=== PATIENT | female | born 1945 | race Caucasian/White ===

== ENCOUNTER 2023-07-22 10:44 | Outpatient (AMB) | payer MEDICARE, OTHER, SELFPAY ==
--- NOTE | 2023-07-22 10:47 | MHC.OFFVIS ---
Intake Vital Signs 07/22/23 10:58 Height 4 ft 11 in Weight 286 lb 9.615 oz BMI 57.9 BP 118/72 Blood Pressure Location Rt brachial Position Sitting Pulse 71 Pulse Source Pulse Oximeter Pulse Oximetry (%) 97 Intake Visit Reasons: Osteoarthritis of knee Intake Note: New pt presents today for OA consult. Pain in bl knees, left knee cortisone injection appr 3 months ago helped. 2 weeks ago right knee pain has progressed. Nurse Educator Required: No Accompanied by: Friend Allergies amoxicillin [From Augmentin] Adverse Reaction (Unknown, Verified 07/22/23 11:07) Nausea atenolol Adverse Reaction (Unknown, Verified 07/22/23 11:07) Nausea clavulanic acid [From Augmentin] Adverse Reaction (Unknown, Verified 07/22/23 11:07) Nausea codeine Adverse Reaction (Unknown, Verified 07/22/23 11:07) Nausea hydrocodone [From Hycomine (hydrocodone-PPA)] Adverse Reaction (Unknown, Verified 07/22/23 11:07) Nausea phenylpropanolamine [From Hycomine (hydrocodone-PPA)] Adverse Reaction (Unknown, Verified 07/22/23 11:07) Nausea Medication List - Last Reconciled 07/22/23 by Prema Oliver MD albuterol sulfate 2.5 mg inhalation Q4-6H PRN albuterol sulfate 90 mcg/actuation 2 puffs inhalation Q4-6H PRN blood-glucose meter (FreeStyle Lite Meter kit) As directed escitalopram oxalate 5 mg PO DAILY furosemide 20 mg PO DAILY hydrochlorothiazide 12.5 mg PO DAILY hydroxychloroquine 200 mg PO BID lisinopril 40 mg PO DAILY metformin ER 1,000 mg PO BID pravastatin 10 mg PO BEDTIME HPI HPI Comments History of Present Illness Details This is a 78-year-old female who presents for evaluation of multiple joint pain and stiffness.. Patient was seen once by Dr. Cortez 06/2022 Starting February of 2022. Patient started having left knee pain, stiffness and swelling. She had left knee arthrocentesis which showed inflammatory fluid. 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 She was evaluated by Dr. Cortez 06/2022 and started on hydroxychloroquine. Hydroxychloroquine was then discontinued. Unclear reasons. Patient states that she received left knee steroid injection 3-4 months ago which helped for about 3-4 months. Now the pain is coming back. She is also starting to have right stiffness, reduced range of motion. Over the last month. Over the last 3 months she has been noticing swelling of both her wrists and fingers. They do not hurt. She has been using a cane since last year. Her maternal grandmother and maternal uncle had rheumatoid arthritis. There is no other known family history of an autoimmune rheumatic disease [facility] Medical History (Updated 07/22/23 @ 11:35 by Prema Oliver MD) Diabetes mellitus Endometrial cancer GERD (gastroesophageal reflux disease) Asthma Obstructive sleep apnea syndrome Non-toxic multinodular goiter Peripheral autonomic neuropathy due to diabetes mellitus Paroxysmal atrial fibrillation Hypertension Osteoarthritis of knee Seropositive rheumatoid arthritis Surgical History Hx of cholecystectomy History of total hysterectomy with bilateral salpingo-oophorectomy (BSO) Hx of colonoscopy Family History Mother Myocardial infarction Father Hypertension Social History Household Members: Spouse Alcohol intake: current Alcohol intake frequency: holidays/special occasions only Patient Tobacco Use Status: Never used Tobacco Current occupational status: retired Review of Systems [facility] [place] Reports joint swelling, Reports limited range of motion and Reports stiffness Physical Exam Vital Signs: Last Vital Signs Pulse 71 07/22/23 10:58 BP 118/72 07/22/23 10:58 Pulse Ox 97 07/22/23 10:58 BMI result Body Mass Index 57.9 Const General: cooperative, healthy appearing and comfortable Nutritional Appearance: obese morbidly obese Orientation/consciousness: patient oriented x3 Limitations: no limitations HEENT Mouth: moist mucous membranes Resp Effort & Inspection: normal respiratory effort and able to speak in complete sentences Auscultation: clear to auscultation bilaterally Cardio Rate: regular rate Rhythm: regular rhythm Heart sounds: S1 normal heart sound present Skin General skin exam: dry skin Neuro General: patient oriented x3 Extrem Other: Right wrist swelling and a large ganglion cyst on the volar aspect of the right wrist. No tender joints, negative MCP squeeze test., reduced right hand ammonia worker strength Left wrist swelling and ganglion cyst on the volar aspect of the left wrist without tenderness Limited left wrist extension Swelling of 2nd and 3rd digits Significantly reduced ammonia worker strength Negative MCP squeeze test Bilateral knee swelling, warmth and reduced range of motion Normal pain-free range of motion of both elbows and shoulders Results Reviewed Results Reviewed: Labs? 03/2022 CCP >250 DANIKA 1-160 homogeneous and 1-40 nucleolar CRP normal? ESR 19? Left knee arthrocentesis? WBC: 65520 PMN 60% Left knee x-rays 02/2022 Severe multi compartment degenerative changes.? Infusion Labs 06/2022? HbA1c 6.8% Assessment & Plan Assessment & Plan (1) Seropositive rheumatoid arthritis: Code(s): M05.9 - Rheumatoid arthritis with rheumatoid factor, unspecified Plan: This is a 78-year-old female who presents for evaluation of multiple stiff and swollen joints. Started with left knee swelling and stiffness 02/2022 arthrocentesis showed inflammatory fluid, over the last 3 months she has been having right knee stiffness as well as swelling and stiffness of her hands and wrists. On exam she has multiple swollen joints but surprisingly no tenderness. Labs showed a positive anti CCP antibody in high titers. Clinical picture consistent with new onset rheumatoid arthritis. Of note patient was briefly on hydroxychloroquine last year but hydroxychloroquine was discontinued, patient does not recall what happened. Will need to start DMARDs. Check labs 1st as well as involved joints. Check RF Follow-up in 3 weeks (2) DANIKA positive: Code(s): R76.8 - Other specified abnormal immunological findings in serum Plan: Check further labs Plan I spent 46 minutes reviewing patient's chart, evaluating patient, ordering diagnostic workup, counseling patient and documenting in the chart Orders: Orders Complete Blood Count Auto Diff Today M05.9 - Rheumatoid arthritis with rheumatoid factor, unspecified Comprehensive Met. Panel Today M05.9 - Rheumatoid arthritis with rheumatoid factor, unspecified Erythrocyte Sedimentation Rate Today M05.9 - Rheumatoid arthritis with rheumatoid factor, unspecified Immunofixation Pnl, Serum Today M05.9 - Rheumatoid arthritis with rheumatoid factor, unspecified Protein Electrophoresis, Serum Today M05.9 - Rheumatoid arthritis with rheumatoid factor, unspecified T Spot TB Today Z11.7 - Encounter for testing for latent tuberculosis infection Rheumatoid Factor Today M05.9 - Rheumatoid arthritis with rheumatoid factor, unspecified Complement C3 Today M34.9 - Systemic sclerosis, unspecified Complement C4 Today M34.9 - Systemic sclerosis, unspecified Sjogren's Antibodies Today M34.9 - Systemic sclerosis, unspecified UA w Microscopic Today M34.9 - Systemic sclerosis, unspecified Scleroderma 12 Panel Today M34.9 - Systemic sclerosis, unspecified XR knee LT 3V Today M05.9 - Rheumatoid arthritis with rheumatoid factor, unspecified XR foot RT min 3V Today M05.9 - Rheumatoid arthritis with rheumatoid factor, unspecified XR ankle LT min 3V Today M05.9 - Rheumatoid arthritis with rheumatoid factor, unspecified C Reactive Protein Today M05.9 - Rheumatoid arthritis with rheumatoid factor, unspecified Hepatitis A,B,C Profile Today Z11.59 - Encounter for screening for other viral diseases Hemoglobin A1c Today E11.9 - Type 2 diabetes mellitus without complications Anti Extractable Nuclear Ag Today M34.9 - Systemic sclerosis, unspecified Anti DNA DS Antibody Today M34.9 - Systemic sclerosis, unspecified Protein Creatinine Ratio, Ur Today M34.9 - Systemic sclerosis, unspecified XR hand wrist LT Today M05.9 - Rheumatoid arthritis with rheumatoid factor, unspecified XR hand wrist RT Today M05.9 - Rheumatoid arthritis with rheumatoid factor, unspecified XR knee RT 3V Today M05.9 - Rheumatoid arthritis with rheumatoid factor, unspecified XR knee standing BI Today M05.9 - Rheumatoid arthritis with rheumatoid factor, unspecified XR foot LT min 3V Today M05.9 - Rheumatoid arthritis with rheumatoid factor, unspecified XR ankle RT min 3V Today M05.9 - Rheumatoid arthritis with rheumatoid factor, unspecified Coding Level of Care Code New Pt Level 4 (42143) Diagnoses Seropositive rheumatoid arthritis M05.9 DANIKA positive R76.8
[2023-07-22 10:58] VITALS: BP 118/72; PULSE 71; O2SAT 97; BMI 57.9
== END 2023-07-22 11:33 | disposition home or self-care (01) ==
PROVIDERS: PCP Physician Assistant; Visit Provider Student in an Organized Health Care Education/Training Program
DX: M05.79 Rheumatoid arthritis with rheumatoid factor of multiple sites without organ or systems involvement (principal); R76.8 Other specified abnormal immunological findings in serum
CPT/HCPCS: 99205

== ENCOUNTER → 2023-07-22 10:44 | Outpatient (BNVA) | payer MEDICARE, SELFPAY | PROVIDERS: PCP Physician Assistant; Visit Provider Student in an Organized Health Care Education/Training Program ==

== ENCOUNTER 2023-07-27 10:00 | Outpatient (REF) | payer MEDICARE, OTHER, SELFPAY ==
--- NOTE | ~2023-07-27 | XR_ITS ---
EXAMINATION: XR BILATERAL FEET, ANKLES, KNEES AND HANDS CLINICAL INFORMATION: Rheumatoid arthritis, pain COMPARISON: None TECHNIQUE: 2 views left ankle, 3 views left foot, 2 views right ankle, 3 views right foot, 3 views right knee, 4 views each including navicular views, 3 views left knee. AP standing view of bilateral knees. FINDINGS: LEFT ANKLE/FOOT: The bones are diffusely demineralized. Moderate plantar calcaneal spur. Advanced degenerative changes in the first metatarsophalangeal joint with metatarsus adductus, hallux valgus and medial soft tissue bunion. No displaced fracture. Recommend follow-up imaging in 10-14 days if fracture is suspected. RIGHT ANKLE/FOOT: The bones are diffusely demineralized. Moderate plantar calcaneal spur. Advanced degenerative changes in the first metatarsophalangeal joint with metatarsus adductus, hallux valgus and medial soft tissue bunion. Degenerative changes at the midfoot with hypertrophic change notable along the medial aspect. No displaced fracture. Recommend follow-up imaging in 10-14 days if fracture is suspected.
[2023-07-27 10:20] LABS: MANUAL DIFF FLAG NO
[2023-07-27 10:28] LABS: Basophils Percent Auto 0.4 % (0-2); Eosinophils Absolute Auto 0.1 X10*3/uL (0.0-0.4); Eosinophils Percent Auto 1.1 % (0-4); Hemoglobin 11.5 g/dl (12.0-16.0); Imm Gran Abs Auto 0.03 X10*3/uL (0.00-0.03); Imm Gran Pct Auto 0.4 % (0.0-0.4); Lymphocytes Absolute Auto 0.4 X10*3/uL (1.2-4.9); Lymphocytes Percent Auto 5.5 % (20-40); Mean Corpuscular HGB Conc 32.9 g/dl (31.0-35.0); Mean Corpuscular Hemoglobin 28.8 pg (27.0-33.0); Mean Corpuscular Volume 87.7 fL (80.0-98.0); Mean Platelet Volume 9.1 fL (9.4-12.3); Monocytes Absolute Auto 0.5 X10*3/uL (0.1-1.2); Monocytes Percent Auto 6.1 % (2-11); Neutrophils Absolute Auto 6.4 x10*3/uL (2.0-8.3); Neutrophils Percent Auto 86.5 % (45-73); Platelet Count 269 X10*3/uL (160-400); Red Blood Count 3.99 X10*6/uL (4.20-5.50); Red Cell Distribution Width 14.4 % (11.0-16.0); White Blood Count 7.4 X10*3/uL (4.8-10.8)
[2023-07-27 10:43] LABS: Estimated Average Glucose 123 mg/dL; Hemoglobin A1c % 5.9 % (<6.0)
[2023-07-27 11:08] LABS: Erythrocyte Sedimentation Rate 38 MM/HR (0-20)
[2023-07-27 11:28] LABS: Alanine Aminotransferase 6 U/L (0-31); Albumin Level 3.7 g/dL (3.5-5.0); Alkaline Phosphatase 97 U/L (39-117); Anion Gap 14 (12-20); Aspartate Amino Transferase 10 U/L (5-31); Bilirubin Total 0.6 mg/dL (0.0-1.0); Blood Urea Nitrogen 11 mg/dL (9-16); C Reactive Protein 4.11 mg/dL (< or = 0.50); Calcium 9.6 mg/dL (8.4-10.2); Carbon Dioxide 23 mmol/L (22-29); Chloride 103 mmol/L (96-108); Estimated Glomerular Filt Rate > 60; Glucose Random 124 mg/dL (60-115); Potassium 3.6 mmol/L (3.3-5.1); Sodium 136 mmol/L (135-145); Total Protein 7.2 g/dL (6.5-8.0)
[2023-07-27 11:51] LABS: HBS Num1 0.32 mIU/mL (0-7.99); HBsAGNum1 0.33 S/CO (0.00-0.99); Hepatitis A Antibody IgM 0.14 Index (0-0.79); Hepatitis B Core Antibody Nonreactive (Nonreactive); Hepatitis B Surface Antigen Negative (Negative); ~HepC Num1 0.04 S/CO (0.00-0.79); ~Hepatitis A Antibody IgM Nonreactive (Nonreactive); ~Hepatitis B Surface Antibody NONREACTIVE (Nonreactive); ~Hepatitis C Antibody Nonreactive (Nonreactive)
[2023-07-29 13:34] LABS: TS Negative Control Passed; TS Panel A 0; TS Panel B 0; TS Positive Control Passed; TSpotTB Negative (Negative)
[2023-07-29 16:58] LABS: Complement C3 157 mg/dL (83-193)
[2023-07-30 12:19] LABS: IgA 422 mg/dL (70-320); IgG 1278 mg/dL (600-1540); IgM 86 mg/dL (50-300)
[2023-07-31 07:38] LABS: Anti DNA DS Antibody 1 IU/mL; Antibody to SS-A Antigen <1.0 NEG AI (<1.0 NEG); Antibody to SS-B Antigen 2.0 POS AI (<1.0 NEG); SM/Ribonucleoprotein Ab <1.0 NEG AI (<1.0 NEG); Smith Protein <1.0 NEG AI (<1.0 NEG)
[2023-07-31 08:28] LABS: Prot Elec - Albumin 3.5 g/dL (3.8-4.8); Prot Elec - Alpha1 0.4 g/dL (0.2-0.3); Prot Elec - Beta 1 0.5 g/dL (0.4-0.6); Prot Elec - Beta 2 0.5 g/dL (0.2-0.5); Prot Elec - Gamma 1.1 g/dL (0.8-1.7)
[2023-08-03 15:59] LABS: Centromere Protein A Ab <11 SI (<11); Centromere Protein B Ab <11 SI (<11); Fibrillarin Ab <11 SI (<11); PM SCL 100 Ab <11 SI (<11); PM SCL 75 Ab <11 SI (<11); RNA Polymerase III RP11 Ab <11 SI (<11); RNA Polymerase III RP155 Ab <11 SI (<11); SCL-70 Extractable Nuclear Ab <11 SI (<11); Th-To Ab <11 SI (<11); U1 SNRNP RNP 70KD <11 SI (<11); U1 SNRNP RNP A <11 SI (<11); U1 SNRNP RNP C <11 SI (<11)
== END 2023-07-27 10:01 | disposition home or self-care (01) ==
LOC: HO.LAB 10:00
PROVIDERS: Visit Provider Student in an Organized Health Care Education/Training Program
DX: Z11.7 Encounter for testing for latent tuberculosis infection (principal); Z11.59 Encounter for screening for other viral diseases; M05.9 Rheumatoid arthritis with rheumatoid factor, unspecified; M34.9 Systemic sclerosis, unspecified; E11.9 Type 2 diabetes mellitus without complications; Z72.89 Other problems related to lifestyle
CPT/HCPCS: 36415; 73110; 73130; 73564; 73610; 73630; 80053; 82784; 83036; 84165; 84182; 85025; 85652; 86140; 86160; 86225; 86235; 86334; 86431; 86481; 86704; 86706; 86709; 86803; 87340

== ENCOUNTER 2023-08-11 11:36 | Outpatient (AMB) | payer MEDICARE, OTHER, SELFPAY ==
--- NOTE | 2023-08-11 11:32 | MHC.OFFVIS ---
Intake Vital Signs 08/11/23 11:33 Height 4 ft 11 in BMI Reason not done Patient refused/unable BP 128/74 Blood Pressure Location Rt brachial Position Sitting Pulse 79 Pulse Source Pulse Oximeter Temp 97.8 F Temp Source Skin Pulse Oximetry (%) 97 Intake Visit Reasons: RA Intake Note: Pt last seen 07/22/23, presents today for follow up and test results. 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: No Accompanied by: Friend Allergies amoxicillin [From Augmentin] Adverse Reaction (Unknown, Verified 08/11/23 11:40) Nausea atenolol Adverse Reaction (Unknown, Verified 08/11/23 11:40) Nausea clavulanic acid [From Augmentin] Adverse Reaction (Unknown, Verified 08/11/23 11:40) Nausea codeine Adverse Reaction (Unknown, Verified 08/11/23 11:40) Nausea hydrocodone [From Hycomine (hydrocodone-PPA)] Adverse Reaction (Unknown, Verified 08/11/23 11:40) Nausea phenylpropanolamine [From Hycomine (hydrocodone-PPA)] Adverse Reaction (Unknown, Verified 08/11/23 11:40) Nausea Medication List - Last Reconciled 08/11/23 by Prema Oliver MD albuterol sulfate 2.5 mg inhalation Q4-6H PRN albuterol sulfate 90 mcg/actuation 2 puffs inhalation Q4-6H PRN blood-glucose meter (FreeStyle Lite Meter kit) As directed escitalopram oxalate 5 mg PO DAILY furosemide 20 mg PO DAILY hydrochlorothiazide 12.5 mg PO DAILY lisinopril 40 mg PO DAILY metformin ER 1,000 mg PO BID pravastatin 10 mg PO BEDTIME HPI HPI Comments History of Present Illness Details 78-year-old female with seropositive RA returns for follow-up after completion of her diagnostic workup. Continues to be about the same. Initial history: This is a 78-year-old female who presents for evaluation of multiple joint pain and stiffness.. Patient was seen once by Dr. Cortez 06/2022 Starting February of 2022. Patient started having left knee pain, stiffness and swelling. She had left knee arthrocentesis which showed inflammatory fluid. 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 She was evaluated by Dr. Cortez 06/2022 and started on hydroxychloroquine. Hydroxychloroquine was then discontinued. Unclear reasons. Patient states that she received left knee steroid injection 3-4 months ago which helped for about 3-4 months. Now the pain is coming back. She is also starting to have right stiffness, reduced range of motion. Over the last month. Over the last 3 months she has been noticing swelling of both her wrists and fingers. They do not hurt. She has been using a cane since last year. Her maternal grandmother and maternal uncle had rheumatoid arthritis. There is no other known family history of an autoimmune rheumatic disease [facility] Medical History (Updated 08/11/23 @ 12:14 by Prema Oliver MD) Diabetes mellitus Endometrial cancer GERD (gastroesophageal reflux disease) Asthma Obstructive sleep apnea syndrome Non-toxic multinodular goiter Peripheral autonomic neuropathy due to diabetes mellitus Paroxysmal atrial fibrillation Hypertension Osteoarthritis of knee Seropositive rheumatoid arthritis Surgical History Hx of cholecystectomy History of total hysterectomy with bilateral salpingo-oophorectomy (BSO) Hx of colonoscopy Family History Mother Myocardial infarction Father Hypertension Social History Household Members: Spouse Alcohol intake: current Alcohol intake frequency: holidays/special occasions only Patient Tobacco Use Status: Never used Tobacco Current occupational status: retired Review of Systems [facility] [place] Reports joint swelling, Reports limited range of motion and Reports stiffness Physical Exam Vital Signs: Last Vital Signs Temp 97.8 F 08/11/23 11:33 Pulse 79 08/11/23 11:33 BP 128/74 08/11/23 11:33 Pulse Ox 97 08/11/23 11:33 Const General: cooperative, healthy appearing and comfortable Nutritional Appearance: obese morbidly obese Orientation/consciousness: patient oriented x3 Limitations: no limitations HEENT Mouth: moist mucous membranes Resp Effort & Inspection: normal respiratory effort and able to speak in complete sentences Skin General skin exam: dry skin Neuro General: patient oriented x3 Extrem Other: Right wrist swelling and a large ganglion cyst on the volar aspect of the right wrist. No tender joints, negative MCP squeeze test., reduced right hand job coach strength Left wrist swelling and ganglion cyst on the volar aspect of the left wrist without tenderness Limited left wrist extension Swelling of 2nd and 3rd digits Significantly reduced job coach strength Negative MCP squeeze test Bilateral knee swelling, warmth and reduced range of motion Normal pain-free range of motion of both elbows and shoulders Results Reviewed Results Reviewed: Labs? 03/2022 CCP >250 DANIKA 1-160 homogeneous and 1-40 nucleolar CRP normal? ESR 19? Left knee arthrocentesis? WBC: 47027 PMN 60% Left knee x-rays 02/2022 Severe multi compartment degenerative changes.? Infusion Labs 06/2022? HbA1c 6.8% Assessment & Plan Assessment & Plan (1) Seropositive rheumatoid arthritis: Comment: +RF+++CCP dx 06/2022 HCQ briefly unclear effect MTX 07/2023 Code(s): M05.9 - Rheumatoid arthritis with rheumatoid factor, unspecified Plan: This is a 78-year-old female who presents for evaluation of multiple stiff and swollen joints. Started with left knee swelling and stiffness 02/2022 arthrocentesis showed inflammatory fluid, over the last 3 months she has been having right knee stiffness as well as swelling and stiffness of her hands and wrists. On exam she has multiple swollen joints but surprisingly no tenderness. Labs showed a positive anti CCP antibody in high titers, +RF picture consistent with new onset seropositive rheumatoid arthritis. Will need to start DMARDs. Discussed risks and benefits of methotrexate. Patient agreed to proceed. Start methotrexate 15 mg once weekly then 20 mg once weekly plus folic acid 1 mg daily Labs before next visit in 2 months (2) DANIKA positive: Code(s): R76.8 - Other specified abnormal immunological findings in serum Plan: Mildly positive SSb, no prominent sicca symptoms. Other sub serologies negative. Will continue to monitor patient. 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 Panel 2 Months M05.9 - Rheumatoid arthritis with rheumatoid factor, unspecified C Reactive Protein 2 Months M05.9 - Rheumatoid arthritis with rheumatoid factor, unspecified Medications: New folic acid 1 mg PO DAILY 90 tabs 1RF methotrexate sodium Take 6 tabs by mouth once weekly for 2 weeks then 8 tabs once weekly 64 tabs 0RF Coding Level of Care Code Est Pt Level 4 (55540) Diagnoses Seropositive rheumatoid arthritis M05.9 DANIKA positive R76.8 residential methotrexate user Z79.631
[2023-08-11 11:33] VITALS: BP 128/74; PULSE 79; TEMP 36.6; O2SAT 97
== END 2023-08-11 12:11 | disposition home or self-care (01) ==
PROVIDERS: PCP Physician Assistant; Visit Provider Student in an Organized Health Care Education/Training Program
DX: M05.79 Rheumatoid arthritis with rheumatoid factor of multiple sites without organ or systems involvement (principal); Z79.631 Long term (current) use of antimetabolite agent; R76.0 Raised antibody titer
CPT/HCPCS: 99214

== ENCOUNTER → 2023-08-11 11:36 | Outpatient (BNVA) | payer MEDICARE, OTHER, SELFPAY | PROVIDERS: PCP Physician Assistant; Visit Provider Student in an Organized Health Care Education/Training Program | DX: M05.9 Rheumatoid arthritis with rheumatoid factor, unspecified (principal) | CPT/HCPCS: 99212 ==

== ENCOUNTER 2023-10-27 13:04 | Outpatient (AMB) | payer MEDICARE, OTHER, SELFPAY ==
--- NOTE | 2023-10-27 13:24 | MHC.OFFVIS ---
Intake Vital Signs 10/27/23 13:25 Height 4 ft 11 in BMI Reason not done Patient refused/unable BP 116/64 Blood Pressure Location Lt brachial Position Sitting Pulse 74 Pulse Source Pulse Oximeter Temp 97.3 F Temp Source Skin Pulse Oximetry (%) 98 Oxygen Delivery Method Room Air Intake Visit Reasons: RA Intake Note: Patient last seen 08/11/23 presents today for follow up and test results. States she doing better after starting MTX 8tabs weekly. Hospice Plan Administrator Required: No Accompanied by: Friend Allergies amoxicillin [From Augmentin] Adverse Reaction (Unknown, Verified 10/27/23 13:37) Nausea atenolol Adverse Reaction (Unknown, Verified 10/27/23 13:37) Nausea clavulanic acid [From Augmentin] Adverse Reaction (Unknown, Verified 10/27/23 13:37) Nausea codeine Adverse Reaction (Unknown, Verified 10/27/23 13:37) Nausea hydrocodone [From Hycomine (hydrocodone-PPA)] Adverse Reaction (Unknown, Verified 10/27/23 13:37) Nausea phenylpropanolamine [From Hycomine (hydrocodone-PPA)] Adverse Reaction (Unknown, Verified 10/27/23 13:37) Nausea Medication List - Last Reconciled 10/27/23 by Prema Oliver MD albuterol sulfate 2.5 mg inhalation Q4-6H PRN albuterol sulfate 90 mcg/actuation 2 puffs inhalation Q4-6H PRN blood-glucose meter (FreeStyle Lite Meter kit) As directed escitalopram oxalate 5 mg PO DAILY folic acid 1 mg PO DAILY furosemide 20 mg PO DAILY hydrochlorothiazide 12.5 mg PO DAILY lisinopril 40 mg PO DAILY metformin ER 1,000 mg PO BID methotrexate sodium 20 mg (8 x 2.5 mg) PO QWEEK pravastatin 10 mg PO BEDTIME HPI HPI Comments History of Present Illness Details 78-year-old female with seropositive RA returns for follow-up . She started methotrexate after last visit. She has been on it for approximately 10 weeks. She is doing much better overall. Improved joint pain, stiffness and morbidity. She can not think of any side effects related to methotrexate. Initial history: This is a 78-year-old female who presents for evaluation of multiple joint pain and stiffness.. Patient was seen once by Dr. Cortez 06/2022 Starting February of 2022. Patient started having left knee pain, stiffness and swelling. She had left knee arthrocentesis which showed inflammatory fluid. 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 She was evaluated by Dr. Cortez 06/2022 and started on hydroxychloroquine. Hydroxychloroquine was then discontinued. Unclear reasons. Patient states that she received left knee steroid injection 3-4 months ago which helped for about 3-4 months. Now the pain is coming back. She is also starting to have right stiffness, reduced range of motion. Over the last month. Over the last 3 months she has been noticing swelling of both her wrists and fingers. They do not hurt. She has been using a cane since last year. Her maternal grandmother and maternal uncle had rheumatoid arthritis. There is no other known family history of an autoimmune rheumatic disease [facility] Medical History (Updated 10/27/23 @ 14:10 by Prema Oliver MD) Diabetes mellitus Endometrial cancer GERD (gastroesophageal reflux disease) Asthma Obstructive sleep apnea syndrome Non-toxic multinodular goiter Peripheral autonomic neuropathy due to diabetes mellitus Paroxysmal atrial fibrillation Hypertension Osteoarthritis of knee Seropositive rheumatoid arthritis Surgical History Hx of cholecystectomy History of total hysterectomy with bilateral salpingo-oophorectomy (BSO) Hx of colonoscopy Family History Mother Myocardial infarction Father Hypertension Social History Household Members: Spouse Alcohol intake: current Alcohol intake frequency: holidays/special occasions only Patient Tobacco Use Status: Never used Tobacco Current occupational status: retired Review of Systems [facility] [place] Reports limited range of motion and Reports stiffness Physical Exam Vital Signs: Last Vital Signs Temp 97.3 F 10/27/23 13:25 Pulse 74 10/27/23 13:25 BP 116/64 10/27/23 13:25 Pulse Ox 98 10/27/23 13:25 Oxygen Delivery Method Room Air 10/27/23 13:25 Const General: cooperative, healthy appearing and comfortable Nutritional Appearance: obese morbidly obese Orientation/consciousness: patient oriented x3 Limitations: no limitations HEENT Mouth: moist mucous membranes Resp Effort & Inspection: normal respiratory effort and able to speak in complete sentences Skin General skin exam: dry skin Neuro General: patient oriented x3 Extrem Other: Mild right wrist swelling, the ganglion cyst on the volar aspect is much smaller. There are no tender joints right hand and wrist. Normal range of motion of right wrist without pain Normal range of motion of right elbow and shoulder Mild left wrist swelling no pain with flexion and extension Pumpman strength improved bilaterally Negative MCP squeeze test Patient global : 4 Results Reviewed Results Reviewed: Labs? 03/2022 CCP >250 DANIKA 1-160 homogeneous and 1-40 nucleolar CRP normal? ESR 19? Left knee arthrocentesis? WBC: 46827 PMN 60% Left knee x-rays 02/2022 Severe multi compartment degenerative changes.? Infusion Labs 06/2022? HbA1c 6.8% Assessment & Plan Assessment & Plan (1) Seropositive rheumatoid arthritis: Comment: +RF+++CCP dx 06/2022 HCQ briefly unclear effect MTX 07/2023 effective Code(s): M05.9 - Rheumatoid arthritis with rheumatoid factor, unspecified Plan: This is a 78-year-old female with seropositive RA who returns for follow-up. On methotrexate 20 mg weekly. Doing much better overall with much less swollen and tender joints. Inflammatory markers improving. Continue methotrexate 20 mg weekly but split dose into 4 tabs twice 10-12 hours apart Continue folic acid 1 mg daily Labs before next visit in 3 months (2) DANIKA positive: Code(s): R76.8 - Other specified abnormal immunological findings in serum Plan: Mildly positive SSb, no prominent sicca symptoms. Other sub serologies negative. Will continue to monitor patient. 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
[2023-10-27 13:25] VITALS: BP 116/64; PULSE 74; TEMP 36.3; O2SAT 98
== END 2023-10-27 14:08 | disposition home or self-care (01) ==
PROVIDERS: PCP Physician Assistant; Visit Provider Student in an Organized Health Care Education/Training Program
DX: M05.79 Rheumatoid arthritis with rheumatoid factor of multiple sites without organ or systems involvement (principal); R76.8 Other specified abnormal immunological findings in serum; Z79.631 Long term (current) use of antimetabolite agent
CPT/HCPCS: 99214

== ENCOUNTER → 2023-10-27 13:04 | Outpatient (BNVA) | payer MEDICARE, OTHER, SELFPAY | PROVIDERS: PCP Physician Assistant; Visit Provider Student in an Organized Health Care Education/Training Program | DX: M05.9 Rheumatoid arthritis with rheumatoid factor, unspecified (principal); R76.8 Other specified abnormal immunological findings in serum; Z79.631 Long term (current) use of antimetabolite agent | CPT/HCPCS: 99212 ==

== ENCOUNTER 2024-01-26 13:31 | Outpatient (AMB) | payer MEDICARE, OTHER, SELFPAY ==
[2024-01-26 13:34] VITALS: BP 132/84; PULSE 94; O2SAT 96
--- NOTE | 2024-01-26 13:34 | MHC.OFFVIS ---
Vital Signs 01/26/24 13:34 Height 4 ft 11 in BMI Reason not done Patient refused/unable BP 132/84 Blood Pressure Location Rt brachial Position Sitting Pulse 94 Pulse Source Pulse Oximeter Pulse Oximetry (%) 96 Oxygen Delivery Method Room Air Intake Visit Reasons: RA Intake Note: Patient last seen 10/27/23 presents today for follow up and test results. Labs scanned in from [facility] [employer] Service Representative Required: No Accompanied by: Friend Lesly Allergies amoxicillin [From Augmentin] Adverse Reaction (Unknown, Verified 01/26/24 13:44) Nausea atenolol Adverse Reaction (Unknown, Verified 01/26/24 13:44) Nausea clavulanic acid [From Augmentin] Adverse Reaction (Unknown, Verified 01/26/24 13:44) Nausea codeine Adverse Reaction (Unknown, Verified 01/26/24 13:44) Nausea hydrocodone [From Hycomine (hydrocodone-PPA)] Adverse Reaction (Unknown, Verified 01/26/24 13:44) Nausea phenylpropanolamine [From Hycomine (hydrocodone-PPA)] Adverse Reaction (Unknown, Verified 01/26/24 13:44) Nausea Medication List - Last Reconciled 01/26/24 by Prema Oliver MD albuterol sulfate 2.5 mg inhalation Q4-6H PRN albuterol sulfate 90 mcg/actuation 2 puffs inhalation Q4-6H PRN blood sugar diagnostic (FreeStyle Test strips) As directed blood-glucose meter (FreeStyle Lite Meter kit) As directed escitalopram oxalate 5 mg PO DAILY folic acid 1 mg PO DAILY furosemide 20 mg PO DAILY hydrochlorothiazide 12.5 mg PO DAILY lancets (FreeStyle Lancets) As directed lisinopril 40 mg PO DAILY metformin ER 1,000 mg PO BID methotrexate sodium 20 mg (8 x 2.5 mg) PO QWEEK pravastatin 10 mg PO BEDTIME HPI Comments Details: 78-year-old female with seropositive RA returns for follow-up . Doing well overall. Remains on methotrexate 20 mg weekly split dose plus folic acid 1 mg daily. She states that she is much more mobile overall. She is able to do her grocery shopping. She is able to walk at home with 2 canes. She only uses the wheelchair when she is in an unfamiliar environment. Today she is in clinic on a wheelchair. Has any side effects related to methotrexate. She stated that about a week ago she had 1 day of fever associated with generalized weakness. Symptoms resolved within 2 days Initial history: This is a 78-year-old female who presents for evaluation of multiple joint pain and stiffness.. Patient was seen once by Dr. Cortez 06/2022 Starting February of 2022. Patient started having left knee pain, stiffness and swelling. She had left knee arthrocentesis which showed inflammatory fluid. 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 She was evaluated by Dr. Cortez 06/2022 and started on hydroxychloroquine. Hydroxychloroquine was then discontinued. Unclear reasons. Patient states that she received left knee steroid injection 3-4 months ago which helped for about 3-4 months. Now the pain is coming back. She is also starting to have right stiffness, reduced range of motion. Over the last month. Over the last 3 months she has been noticing swelling of both her wrists and fingers. They do not hurt. She has been using a cane since last year. Her maternal grandmother and maternal uncle had rheumatoid arthritis. There is no other known family history of an autoimmune rheumatic disease [facility] Medical History Diabetes mellitus Endometrial cancer GERD (gastroesophageal reflux disease) Asthma Obstructive sleep apnea syndrome Non-toxic multinodular goiter Peripheral autonomic neuropathy due to diabetes mellitus Paroxysmal atrial fibrillation Hypertension Osteoarthritis of knee Seropositive rheumatoid arthritis Surgical History Hx of cholecystectomy History of total hysterectomy with bilateral salpingo-oophorectomy (BSO) Hx of colonoscopy Family History Mother Myocardial infarction Father Hypertension Social History Household Members: Spouse Alcohol intake: current Alcohol intake frequency: holidays/special occasions only Patient Tobacco Use Status: Never used Tobacco Current occupational status: retired Review of Systems [facility] [place] Denies arthralgias, Denies joint swelling and Denies stiffness Physical Exam Vital Signs: Last Vital Signs Pulse 94 01/26/24 13:34 BP 132/84 01/26/24 13:34 Pulse Ox 96 01/26/24 13:34 Oxygen Delivery Method Room Air 01/26/24 13:34 Const General: cooperative, healthy appearing and comfortable Nutritional Appearance: obese morbidly obese Orientation/consciousness: patient oriented x3 Limitations: no limitations HEENT Mouth: moist mucous membranes Resp Effort & Inspection: normal respiratory effort and able to speak in complete sentences Skin General skin exam: dry skin Neuro General: patient oriented x3 Extrem Other: No active synovitis No swollen or tender joints both hands wrists today Normal range of motion of elbows and shoulders without pain Results Reviewed Results Reviewed: Labs? 03/2022 CCP >250 DANIKA 1-160 homogeneous and 1-40 nucleolar CRP normal? ESR 19? Left knee arthrocentesis? WBC: 82250 PMN 60% Left knee x-rays 02/2022 Severe multi compartment degenerative changes.? Infusion Labs 06/2022? HbA1c 6.8% Assessment & Plan Assessment & Plan (1) Seropositive rheumatoid arthritis: Comment: +RF+++CCP dx 06/2022 HCQ briefly unclear effect MTX 07/2023 effective Code(s): M05.9 - Rheumatoid arthritis with rheumatoid factor, unspecified Category: Medical Plan: This is a 78-year-old female with seropositive RA who returns for follow-up. On methotrexate 20 mg weekly split dose. Doing quite well with no swollen or tender joints. Recent labs showed inflammatory high inflammatory markers which might be related to recent mild viral illness. Continue methotrexate 20 mg weekly split dose Continue folic acid 1 mg daily Labs before next visit in 4 months (2) DANIKA positive: Code(s): R76.8 - Other specified abnormal immunological findings in serum Category: Medical Plan: Mildly positive SSb, no prominent sicca symptoms. Other sub serologies negative. Will continue to monitor patient. (3) correction methotrexate user: Code(s): Z79.631 - correction (current) use of antimetabolite agent Category: Medical Plan: Monitor safety labs Plan I spent 26 minutes reviewing patient's chart, evaluating patient, ordering diagnostic workup, counseling patient and documenting in the chart Orders: Orders Complete Blood Count Auto Diff 4 Months Z79.631 - correction (current) use of antimetabolite agent C Reactive Protein 4 Months Z79.631 - group care worker (current) use of antimetabolite agent Comprehensive Met. Panel 4 Months Z79.631 - group care worker (current) use of antimetabolite agent Erythrocyte Sedimentation Rate 4 Months Z79.631 - group care worker (current) use of antimetabolite agent Coding Level of Care Code Est Pt Level 4 (22491) Complex EM visit Add On G2211 Diagnoses Seropositive rheumatoid arthritis M05.9 DANIKA positive R76.8 group care worker methotrexate user Z79.631
== END 2024-01-26 14:09 | disposition home or self-care (01) ==
PROVIDERS: PCP Physician Assistant; Visit Provider Student in an Organized Health Care Education/Training Program
DX: M05.79 Rheumatoid arthritis with rheumatoid factor of multiple sites without organ or systems involvement (principal); R76.8 Other specified abnormal immunological findings in serum; Z79.631 Long term (current) use of antimetabolite agent
CPT/HCPCS: 99214; G2211

== ENCOUNTER → 2024-01-26 13:31 | Outpatient (BNVA) | payer MEDICARE, OTHER, SELFPAY | PROVIDERS: PCP Physician Assistant; Visit Provider Student in an Organized Health Care Education/Training Program | DX: M05.9 Rheumatoid arthritis with rheumatoid factor, unspecified (principal); R76.8 Other specified abnormal immunological findings in serum; Z79.631 Long term (current) use of antimetabolite agent | CPT/HCPCS: 99212 ==